=== PATIENT | female | born 1990 | race Two or more races ===

== ENCOUNTER 2024-10-03 14:35 | Emergency (ER) | payer OTHER ==
[~2024-10-03] VITALS: Ht 152.4 cm; Wt 54.9 kg
[2024-10-03 15:30] VITALS: BP 124/83; TEMP 98.3; O2SAT 96
== END 2024-10-03 18:32 | disposition home or self-care (01) ==
LOC: ER 14:39
DX: R50.9 Fever, unspecified (principal); Z53.21 Procedure and treatment not carried out due to patient leaving prior to being seen by health care provider